=== PATIENT | male | born 1980 | race Caucasian/White ===

== ENCOUNTER 2018-11-21 01:06 | Emergency (ER) | payer MEDICAID ==
[2018-11-21 01:28] VITALS: RESP 20; TEMP 97.2
[2018-11-21 01:48] LABS: APPEARANCE,URINE Clear; BASOPHILS % (AUTO) 1 % (0-3); BILIRUBIN,URINE NEGATIVE (NEGATIVE); COLOR,URINE Yellow; EOSINOPHILS % (AUTO) 1 % (0-9); GLUCOSE, URINE (UA) NEGATIVE (NEGATIVE); HEMATOCRIT 48 % (39-53); HEMOGLOBIN 15.2 gm/dl (13.5-17.7); KETONES,URINE NEGATIVE (NEGATIVE); LEUKOCYTE ESTERASE ,URINE NEGATIVE (NEGATIVE); LYMPHOCYTES % (AUTO) 31.7 % (10-50); MEAN CORPUSCULAR HEMOGLOBIN 29.7 pg (27.0-32.0); MEAN CORPUSCULAR HGB CONC 31.5 gm/dl (32.0-36.0); MEAN CORPUSCULAR VOLUME 94 fL (80-100); NEUTROPHILS % (AUTO) 60.4 % (37-80); NITRATE,URINE NEGATIVE (NEGATIVE); OCCULT BLOOD,URINE NEGATIVE (NEG-TRACE); UROBILINOGEN,URINE 0.2 (0.2-1.0 EU)
[2018-11-21 01:57] LABS: ALBUMIN 3.7 gm/dl (3.4-5.0); AMPHETAMINES NEGATIVE (NEGATIVE); BACTERIA 1+ (< 1+); BARBITUATES NEGATIVE (NEGATIVE); BENZODIAZEPINES NEGATIVE (NEGATIVE); BILIRUBIN,TOTAL 0.3 mg/dl (0.2-1.0); CANNABINOL(THC) NEGATIVE (NEGATIVE); CARBON DIOXIDE 25.2 mEq/L (21-32); COCAINE(COC) NEGATIVE (NEGATIVE); CREATININE 1.3 mg/dl (0.80-1.30); CRYSTALS NEGATIVE (0-3 AVE/HPF); METHAMPHETAMINES NEGATIVE (NEGATIVE); OPIATES(OPI) NEGATIVE (NEGATIVE); OXYCODONE(OXY) NEGATIVE (NEGATIVE); PROPOXYPHENE(PPX) NEGATIVE (NEGATIVE); RBC,URINE 0-2 (0-3AV/HPF); TOTAL PROTEIN 7.4 gm/dl (6.4-8.2); WBC,URINE 0-2 (0-5AV/HPF)
[2018-11-21 02:37] VITALS: BP 131/69; PULSE 70; O2SAT 97
== END 2018-11-21 02:30 | disposition home or self-care (01) | DRG 392 ==
LOC: ED 01:06
DX: R10.9 Unspecified abdominal pain (principal); R94.6 Abnormal results of thyroid function studies
CPT/HCPCS: 74019; 80053; 80305; 81001; 82150; 83690; 84443; 85025; 99282; 99283

== ENCOUNTER 2018-12-05 23:54 | Emergency (ER) | payer MEDICAID ==
[2018-12-06] MEDS ORDERED: MECLIZINE HYDROCHLORIDE 12.5 MG TAB PO ONE (00:38)
[2018-12-06 00:42] VITALS: BP 136/79; PULSE 82; RESP 18; TEMP 97.9; O2SAT 92
[2018-12-06] MEDS ORDERED: MECLIZINE HYDROCHLORIDE 12.5 MG TAB ONE (00:42)
== END 2018-12-06 01:01 | disposition home or self-care (01) | DRG 149 ==
LOC: ED 23:54
DX: H83.09 Labyrinthitis, unspecified ear (principal)
CPT/HCPCS: 99282; 99283; A9270-GY

== ENCOUNTER 2018-12-10 12:00 | Emergency (ER) | payer MEDICAID ==
[2018-12-10 12:07] VITALS: TEMP 97.4
[2018-12-10] MEDS ORDERED: SODIUM CHLORIDE 0.9% 1000ML 1,000 ML IV ONE (12:13)
[2018-12-10] MEDS ORDERED: ONDANSETRON HCL 4 MG/2 ML SOL IV ONE (12:13)
[2018-12-10] MEDS ORDERED: MECLIZINE HYDROCHLORIDE 12.5 MG TAB PO ONE ×2 (12:13→13:29)
[2018-12-10] MEDS ORDERED: ONDANSETRON HCL 4 MG/2 ML SOL ONE (12:18)
[2018-12-10] MEDS ORDERED: MECLIZINE HYDROCHLORIDE 12.5 MG TAB ONE ×2 (12:19→13:53)
[2018-12-10 12:43] LABS: BASOPHILS % (AUTO) 1 % (0-3); EOSINOPHILS % (AUTO) 1 % (0-9); HEMATOCRIT 47 % (39-53); HEMOGLOBIN 14.8 gm/dl (13.5-17.7); LYMPHOCYTES % (AUTO) 26.7 % (10-50); MEAN CORPUSCULAR HEMOGLOBIN 29.9 pg (27.0-32.0); MEAN CORPUSCULAR HGB CONC 31.8 gm/dl (32.0-36.0); MEAN CORPUSCULAR VOLUME 94 fL (80-100); MONOCYTES % (AUTO) 8.2 % (0-12); NEUTROPHILS % (AUTO) 63.5 % (37-80)
[2018-12-10 12:50] VITALS: BP 142/63; PULSE 69; RESP 16; O2SAT 96
[2018-12-10 12:52] LABS: CALCIUM 8.7 mg/dl (8.5-10.1); CARBON DIOXIDE 28.5 mEq/L (21-32); CREATININE 1.27 mg/dl (0.80-1.30)
== END 2018-12-10 13:45 | disposition home or self-care (01) | DRG 149 ==
LOC: ED 12:00
DX: R42 Dizziness and giddiness (principal)
CPT/HCPCS: 36415; 80048; 85025; 96365; 96374; 99282; 99284; J2405; A9270-GY

== ENCOUNTER 2018-12-13 22:59 | Emergency (ER) | payer MEDICAID ==
[2018-12-13 23:00] VITALS: O2SAT 96
[2018-12-13 23:39] VITALS: RESP 20; TEMP 96.8
[2018-12-14 00:31] VITALS: BP 169/64; PULSE 78
== END 2018-12-14 00:19 | disposition home or self-care (01) | DRG 880 ==
LOC: ED 22:59
DX: R45.851 Suicidal ideations (principal); F41.9 Anxiety disorder, unspecified; F90.9 Attention-deficit hyperactivity disorder, unspecified type
CPT/HCPCS: 99282